=== PATIENT | male | born 1985 | race Hispanic/Latino ===

== ENCOUNTER 2023-05-20 08:43 | Emergency (ER) | payer OTHER ==
[~2023-05-20] VITALS: Ht 172.7 cm; Wt 69.4 kg
[2023-05-20 09:27] LABS: BASOPHILS # (AUTO) 0.03 K/uL (0.00-0.20); BASOPHILS % (AUTO) 0.2 % (0.0-5.0); EOSINOPHILS # (AUTO) 0.02 K/uL (0.00-0.70); EOSINOPHILS % (AUTO) 0.1 % (0.0-8.0); HEMATOCRIT 44.3 % (42-54); IMMATURE GRANULOCYTE ABSOLUTE 0.05 K/uL (0-1); LYMPHOCYTES # (AUTO) 2.3 K/uL (1.0-4.8); LYMPHOCYTES % (AUTO) 16.6 % (21.0-51.0); MEAN CORPUSCULAR HGB CONC 33.2 g/dL (32.0-36.0); MEAN CORPUSCULAR VOLUME 81.4 fL (79-99); MONOCYTES # (AUTO) 0.7 K/uL (0.1-1.0); MONOCYTES % (AUTO) 5.3 % (3.0-13.0); NEUTROPHILS # (AUTO) 10.7 K/uL (1.8-7.7); NEUTROPHILS % (AUTO) 77.4 % (40.0-77.0); PLATELET COUNT (AUTO) 479 K/uL (130-400); RED BLOOD CELL COUNT(AUTO) 5.44 MIL/uL (4.50-6.20); RED CELL DISTRIBUTION WIDTH 12.3 % (11.0-15.5); WHITE BLOOD COUNT (AUTO) 13.8 K/uL (4.8-10.8)
[2023-05-20 09:29] LABS: APPEARANCE,URINE CLEAR (CLEAR); BILIRUBIN,URINE NEGATIVE (NEGATIVE); COLOR,URINE YELLOW (YELLOW); GLUCOSE, URINE (UA) NEGATIVE (NEGATIVE); KETONES,URINE NEGATIVE (NEGATIVE); LEUKOCYTE ESTERASE ,URINE NEGATIVE Leu/uL (NEGATIVE); NITRATE,URINE NEGATIVE (NEGATIVE); PROTEIN,URINE 10 mg/dL (NEGATIVE); UROBILINOGEN,URINE 0.2 mg/dL (0.2-1.0)
[2023-05-20 09:30] LABS: ADD UA MICROSCOPIC YES
[2023-05-20 09:31] LABS: MUCUS,URINE RARE LPF (None Seen); WBC,URINE 0-1 /HPF (0-1)
[2023-05-20 09:36] LABS: CARBON DIOXIDE 30 mmol/L (21-32); CHLORIDE 100 mmol/L (101-111); CREATININE 0.9 mg/dL (0.5-1.5); GLOMERULAR FILTR. RATE CALC 112 mL/min (>90); GLUCOSE,RANDOM 99 mg/dL (70-105); POTASSIUM 3.6 mmol/L (3.5-5.1); SODIUM SERUM 140 mmol/L (136-145); UREA NITROGEN, BLOOD 18 mg/dL (7-18)
[2023-05-20 09:41] LABS: ACETAMINOPHEN < 1 mcg/mL (10-29); ALANINE AMINOTRANSFERASE 34 U/L (12-78); ALBUMIN 3.6 g/dL (3.5-5.0); ALCOHOL, BLOOD < 3 mg/dL (0-10); ASPARTATE AMINOTRANSFERASE 23 U/L (10-37); BILIRUBIN,TOTAL 0.6 mg/dL (0.2-1.0); SALICYLATE < 2.8 mg/dL (2.8-20.0); TOTAL PROTEIN, SERUM 9.3 g/dL (6.0-8.3)
[2023-05-20 10:09] LABS: AMPHET/METH SCREEN,URINE NEGATIVE (NEGATIVE); BARBITURATE SCREEN, URINE NEGATIVE (NEGATIVE); BENZODIAZEPINES SCREEN,URINE NEGATIVE (NEGATIVE); CANNABINOID SCREEN,URINE NEGATIVE (NEGATIVE); COCAINE SCREEN,URINE NEGATIVE (NEGATIVE); OPIATE SCREEN,URINE NEGATIVE (NEGATIVE); PHENCYCLIDINE SCREEN,URINE NEGATIVE (NEGATIVE)
[2023-05-20 14:07] VITALS: BP 122/69; PULSE 57; RESP 17; O2SAT 98
[2023-05-20] MEDS ORDERED: ACETAMINOPHEN 500 MG TABLET PO ONE (15:00)
== END 2023-05-20 15:55 | disposition home or self-care (01) ==
LOC: EDH 08:43
DX: F32.A Depression, unspecified (principal); F13.20 Sedative, hypnotic or anxiolytic dependence, uncomplicated; F41.9 Anxiety disorder, unspecified; Z79.899 Other long term (current) drug therapy
CPT/HCPCS: 99283; 80053; 80305; 85025; 36415; 81001; G0481

== ENCOUNTER 2024-03-15 11:09 | Emergency (ER) | payer BC ==
[~2024-03-15] VITALS: Ht 167.6 cm; Wt 63.0 kg
--- NOTE | 2024-03-15 11:21 | ERN ---
ED Note History of Present Illness Stated Complaint: RT EYE PAIN Chief Complaint: Eye Problems Time Seen by MD: 11:13 Dictation: PATIENT IS A 38-YEAR-OLD MALE COMING IN TODAY WITH POSSIBLE FOREIGN BODY TO RIGHT EYE HE HAS HAD FOR 2-3 DAYS. HE DENIES ANY HISTORY OF CONTACT LENSES OR GLASSES. STATES HE WAS WORKING ON A VEHICLE WHEN SOMETHING FELL INTO HIS RIGHT EYE. WENT TO [facility] THIS MORNING AND WAS ADVISED TO COME TO THE EMERGENCY ROOM FOR FURTHER EVALUATION AND TREATMENT. HE DENIES VISION CHANGES NO HEADACHE. Additionally, patient states tetanus shot is up to date and in the last five years. Allergies: Coded Allergies: No Known Drug Allergies (Unverified Allergy, Unknown, 05/20/23) Home Meds Active Scripts Tobramycin/Dexamethasone (Tobradex St Eye Drops) 0.3 %-0.05 % Drops.susp, 1 DROP OD QID for 7 Days, #5 ML 0 Refills Prov:JAUN GROSSMAN [employer] WORKER 03/15/24 Ibuprofen (Ibuprofen 800 mg Tab) 800 Mg Tab, 800 MG PO Q8H PRN for fever or pain, #30 TAB 0 Refills Prov:JAUN GROSSMAN [employer] WORKER 03/15/24 Past Medical History Past Medical History: Anxiety, Depression Surgical History: None RN Note Reviewed/Agreed w/PFSH: Yes Review of System Dictation CONSTITUTIONAL: Negative except for HPI HEAD/FACE: Negative except for HPI EENT: Negative except for HPI foreign body right eye is RESPIRATORY: Negative except for HPI GASTROINTESTINAL/ABDOMINAL: Negative except for HPI GENITOURINARY: Negative except for HPI MUSCULOSKELETAL: Negative except for HPI INTEGUMENTARY: Negative except for HPI NEUROLOGICAL/PSYCH: Negative except for HPI HEMATOLOGIC/LYMPHATIC: Negative except for HPI All Systems Negative, Except as noted above. 13 point review of systems assessed and all negative except for above. Initial Vital Sign VS Vital Signs Date Time Temp Pulse Resp B/P (MAP) Pulse Ox O2 Delivery O2 Flow Rate FiO2 03/15/24 11:12 98.1 59 20 106/66 99 Room Air 03/15/24 12:31 0 21 Physical Exam Dictation Vital Signs reviewed General Appearance: Alert, oriented x 3, mild acute distress, well developed, nourished. Head and Face: non-traumatic. Eyes: PERRL, pink conjunctivas, eyelid no trauma, anterior chamber with arcus senilis. Ears: Pinnas intact and no signs of trauma or erythema ear canals clear and no discharge TM no erythema Nose: No discharge, no bleeding. Oropharynx: Mouth normal, tongue pink, pharynx clear,no erythema, tonsils no exudates, no abscesses noted, mucous membrane moist Neck: Supple, non-tender, no thyromegaly, no masses, no JVD, no bruits Breast:Deferred Chest:No tenderness, no crepitus, no paradoxical movement, no retractions Lungs:Clear, well-ventilated, symmetric, no rales, no wheezing, no rhonchi, no stridor, good breath sounds bilaterally Heart: Regular rate, regular rhythm, no murmur, no gallops Vascular: no peripheral edema, Abdomen: Soft, positive bowel sounds, nondistended, no guarding, nontender, no rebound, no masses no hepatomegaly, no splenomegaly, no Parker's sign, no hernias. Rectal: Deferred Genital: Deferred Neurological: Normal speech, motor function intact, sensory function intact Musculoskeletal: Neck nontender, full range of motion, back nontender, full range of motion, Extremities: nontender, full range of motion Skin: Color pink, dry, no turgor, no rash, no lacerations, no abrasions, no contusions. Lymphatic: Deferred Results (Laboratory/Radiology) Labs Reviewed?: Yes ED Course ED Course Medical Decision Making MDM 1148, medical discharge making based on eye exam and corneal foreign body removal. Tetanus shot is up to date Patient was given ibuprofen for analgesia and ophthalmic antibiotics were initiated. He will be discharged home with information on eye protection while working On vehicles or around machinery. In addition he will be provided information on [facility] to follow up in the next 1-2 days Procedure Procedure Dictation: , procedure explained to patient he agreed to proceed. Two drops tetracaine to right eye Fluorescein placed Patient has a metallic foreign body to cornea at 09:00 o'clock position Removed with 18 gauge needle No further metallic object fluorescein after removal. Patient tolerated well DX & DISP Disposition: Discharge Departure Impression: Primary Impression: Acute foreign body of right cornea Condition: Stable Scripts Tobramycin/Dexamethasone (Tobradex St Eye Drops) 0.3 %-0.05 % Drops.susp 1 DROP OD QID for 7 Days, #5 ML 0 Refills Prov: JAUN GROSSMAN [employer] WORK[employer] 03/15/24 Ibuprofen (Ibuprofen 800 mg Tab) 800 Mg Tab 800 MG PO Q8H PRN for fever or pain, #30 TAB 0 Refills Prov: JAUN GROSSMAN NP 03/15/24 Additional Instructions: Follow-up with primary care provider in 1 to 2 days. Take medications as directed here in the emergency room. Okay to continue home medications unless otherwise discussed during your visit in the emergency room today. Return to your nearest emergency room if symptoms worsen or if there is no improvement. Call 911 if you need immediate assistance. Take Tylenol or Motrin [id number] as needed and if no contraindications are present. Increase or al hydration. A wound culture or urine culture was ordered here in the emergency room department please follow-up with primary care provider and advise them to get repeat ports from our facility. If you had any Deric wrap/splints that were applied here, please do not remove them until you see your primary care or specialty. Strongly suggest wearing eye protection while working on any motorized vehicle or machinery. Use TobraDex drops as directed every 6 hours for the next seven days. Follow up with [facility] in the next 1-2 days, call for an appointment today. Referrals: SELF,REFERRAL (PCP) Time of Disposition: 11:49 I have reviewed the case, and I agree with, Diagnosis and Plan I performed this substantive portion of this visit. I have reviewed and personally made and approve the management plan that is documented in the note by myself or the CHELSY. I acknowledge full responsibility for the patient's management plan. JAUN GROSSMAN NP Mar 15, 2024 11:21 ROJAS SANTANA MD Mar 24, 2024 10:58
[2024-03-15] MEDS: TETRACAINE HCL 0.5% 4 ML OPHTH SOLN OP STA (11:35)
[2024-03-15] MEDS: FLUORESCEIN SODIUM 1 STRIP STRIP OP SCH (11:36)
[2024-03-15] MEDS ORDERED: TOBR5DRO46 OD (11:50)
[2024-03-15] MEDS ORDERED: IBUP-2077 PO (11:50)
[2024-03-15] MEDS: tobRAMYCin 0.3% 5 ML OPTH SOLN OD SCH (12:21)
[2024-03-15] MEDS: ibuPROFEN 800 MG TAB PO ONE (12:21)
[2024-03-15 12:31] VITALS: BP 133/78; PULSE 78; RESP 18; TEMP 98.2; O2SAT 98
== END 2024-03-15 12:29 | disposition home or self-care (01) ==
LOC: EDH 11:09
DX: T15.01XA Foreign body in cornea, right eye, initial encounter (principal); W44.9XXA Unspecified foreign body entering into or through a natural orifice, initial encounter; F32.A Depression, unspecified; F41.9 Anxiety disorder, unspecified; W44.8XXA Other foreign body entering into or through a natural orifice, initial encounter; Y93.89 Activity, other specified; Y92.89 Other specified places as the place of occurrence of the external cause; Y99.8 Other external cause status
CPT/HCPCS: 65220